=== PATIENT | male | born 1955 | race Caucasian/White ===

== ENCOUNTER 2020-12-15 21:45 | Emergency (ER) | payer BC ==
[~2020-12-15] VITALS: Ht 167.6 cm; Wt 103.6 kg
--- NOTE | 2020-12-15 22:27 | NUR ---
pt moving to bed 5 for cardioversion
[2020-12-15 22:37] LABS: BASOPHILS % (AUTO) 0.5 % (0-1); EOSINOPHILS # (AUTO) 0.3 X10'3 (0-0.9); EOSINOPHILS % (AUTO) 3.3 % (0-6); HEMATOCRIT 35.4 % (42.0-52.0); LYMPHOCYTES # (AUTO) 2.9 X10'3 (1.1-4.8); LYMPHOCYTES % (AUTO) 29.3 % (21-51); MEAN CORPUSCULAR HGB CONC 33.8 g/dL (33.0-36.5); MEAN CORPUSCULAR VOLUME 85.7 FL (78-98); MEAN PLATELET VOLUME 8.4 FL (7.4-10.4); MONOCYTES # (AUTO) 0.8 X10'3 (0-0.9); MONOCYTES % (AUTO) 7.7 % (2-12); NEUTROPHILS # (AUTO) 5.9 X10'3 (1.8-7.7); NEUTROPHILS % (AUTO) 59.2 % (42-75); PLATELET COUNT 267 X10'3 (140-440); RED BLOOD COUNT 4.13 X10'6 (4.70-6.10); RED CELL DISTRIBUTION WIDTH 14.2 % (11.5-14.5); WHITE BLOOD COUNT 9.9 X10'3 (4.5-11.0)
[2020-12-15] MEDS ORDERED: fentaNYL/PF 50MCG/1 ML 2ML syringe IV ONE ×2 (22:40→23:20)
[2020-12-15] MEDS ORDERED: ondansetron/PF 4mg/2ml inj IV ONE ×2 (22:40)
[2020-12-15] MEDS ORDERED: heparin 10,000 units/1 ML INJ IV ONE (22:40)
[2020-12-15] MEDS ORDERED: etomidate 2mg/ml inj. IV ONE (22:40)
--- NOTE | 2020-12-15 22:49 | NUR ---
resp at bedside
[2020-12-15 22:54] LABS: ALANINE AMINOTRANSFERASE 27 U/L (12-78); ALBUMIN 3.6 G/DL (3.4-5.0); ALKALINE PHOSPHATASE 89 IU/L (46-116); ANION GAP 11 (8-16); ASPARTATE AMINO TRANSFERASE 9 U/L (10-37); BILIRUBIN,TOTAL 0.2 MG/DL (0.1-1.0); BLOOD UREA NITROGEN 26 MG/DL (7-18); BUN/CREATININE RATIO 24.1 (5.4-32.0); CALCIUM 8.6 MG/DL (8.5-10.1); CHLORIDE 105 MMOL/L (99-107); CREATININE 1.08 MG/DL (0.60-1.10); GLUCOSE 174 MG/DL (70-104); POTASSIUM 3.3 MMOL/L (3.5-5.1); SODIUM 143 MMOL/L (135-145); TOTAL CARBON DIOXIDE 26.6 MMOL/L (24-32); TOTAL PROTEIN 7.2 G/DL (6.4-8.2); eGFR 69 ML/MIN
--- NOTE | 2020-12-15 22:57 | NUR ---
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 PT GIVEN HEPARIN AND RT AT BEDSIDE. PT SIGNED CONSENT FORM AND VITALS TAKEN. 2L NC O2 ON PT. CURRENT VITALS HR 145 BP 125/52 SPO2 99% ON 2L NC RR 14 PT BEGAN GETTING DIAPHORETIC AND STATES FEELS SWEATY AND CLAMMY. PT STATES ALSO NAUSEA. GAVE ZOFRAN.
[2020-12-15 23:04] LABS: TROPONIN I < 0.04 NG/ML (0.0-0.05)
[2020-12-15] MEDS ORDERED: potassium Cl 20 mEq SR tablet PO STA (23:06)
[2020-12-15] MEDS ORDERED: amiodarone 150mg/dext, iso-os 100 ML IV ONE (23:20)
[2020-12-15] MEDS ORDERED: normal saline 1000ML IV soln IVB ONE (23:20)
--- NOTE | 2020-12-15 23:26 | NUR ---
MODERATE SEDATION FOR CARDIOVERSION DONE WITH PT FOR A TOTAL OF 3 SYNCED SHOCKS. PT IS NOW AWAKE, DENIES ANY COMPLAINTS AT THIS TIME. PT ALERT AND ORIENTED
[2020-12-15] MEDS ORDERED: SOTA80TA PO (23:57)
[2020-12-15] MEDS ORDERED: APIX5TAB3 PO (23:57)
[2020-12-16 00:38] VITALS: BP 114/58
== END 2020-12-16 00:44 | disposition home or self-care (01) ==
LOC: ER 21:49
DX: I48.91 Unspecified atrial fibrillation (principal); R00.2 Palpitations; E87.6 Hypokalemia; R07.89 Other chest pain; R06.02 Shortness of breath; E78.00 Pure hypercholesterolemia, unspecified; I10 Essential (primary) hypertension; E11.9 Type 2 diabetes mellitus without complications; Z88.8 Allergy status to other drugs, medicaments and biological substances; Z79.899 Other long term (current) drug therapy
CPT/HCPCS: 36415; 71045; 80053; 83880; 84443; 84484; 85025; 92960; 93005; 94799; 96365; 96366; 96375; 99291; J1644; J2405; J3010; J7030; 94760; 99152

== ENCOUNTER 2021-09-13 13:59 | Emergency (ER) | payer BC, OTHER, SELFPAY ==
[~2021-09-13] VITALS: Ht 167.6 cm; Wt 94.9 kg
[~2021-09-13 13:59] MED LIST: APIX5TAB3 PO; SOTA80TA PO
[2021-09-13] MEDS ORDERED: aspirin 81mg tab.chew PO ONE (14:25)
[2021-09-13 15:07] LABS: BASOPHILS # (AUTO) 0.1 X10'3 (0-0.2); BASOPHILS % (AUTO) 0.7 % (0-1); EOSINOPHILS # (AUTO) 0.5 X10'3 (0-0.9); EOSINOPHILS % (AUTO) 6.6 % (0-6); HEMATOCRIT 36.2 % (42.0-52.0); LYMPHOCYTES # (AUTO) 1.6 X10'3 (1.1-4.8); LYMPHOCYTES % (AUTO) 19.8 % (21-51); MEAN CORPUSCULAR HEMOGLOBIN 28.4 PG (27.0-31.0); MEAN CORPUSCULAR HGB CONC 33.2 g/dL (33.0-36.5); MEAN CORPUSCULAR VOLUME 85.7 FL (78-98); MEAN PLATELET VOLUME 8.1 FL (7.4-10.4); MONOCYTES # (AUTO) 0.6 X10'3 (0-0.9); MONOCYTES % (AUTO) 7.6 % (2-12); NEUTROPHILS # (AUTO) 5.3 X10'3 (1.8-7.7); NEUTROPHILS % (AUTO) 65.3 % (42-75); PLATELET COUNT 313 X10'3 (140-440); RED BLOOD COUNT 4.22 X10'6 (4.70-6.10); RED CELL DISTRIBUTION WIDTH 14.2 % (11.5-14.5); WHITE BLOOD COUNT 8.1 X10'3 (4.5-11.0)
[2021-09-13 15:20] LABS: ALANINE AMINOTRANSFERASE 34 U/L (12-78); ALBUMIN/GLOBULIN RATIO 1.1 (1.1-1.5); ALKALINE PHOSPHATASE 71 IU/L (46-116); ANION GAP 9 (8-16); ASPARTATE AMINO TRANSFERASE 21 U/L (10-37); BILIRUBIN,TOTAL 0.3 MG/DL (0.1-1.0); BLOOD UREA NITROGEN 18 MG/DL (7-18); BUN/CREATININE RATIO 19.1 (5.4-32.0); CALCIUM 9.2 MG/DL (8.5-10.1); CHLORIDE 103 MMOL/L (99-107); CREATININE 0.94 MG/DL (0.60-1.10); GLUCOSE 96 MG/DL (70-104); POTASSIUM 4.1 MMOL/L (3.5-5.1); SODIUM 140 MMOL/L (135-145); TOTAL CARBON DIOXIDE 27.6 MMOL/L (24-32); TOTAL PROTEIN 7.8 G/DL (6.4-8.2); eGFR 81 ML/MIN
[2021-09-13 16:51] LABS: D-DIMER < 0.19 MG/L FEU (0-0.50)
[2021-09-13] MEDS ORDERED: iohexol 300mg/ml 100ml inj. ONE (17:51)
[2021-09-13] MEDS ORDERED: metroNIDAZOLE-Flagyl 500mg/NS 100 ML IV STA (19:02)
[2021-09-13] MEDS ORDERED: dexamethasone sod phosphate 10mg/ml inj IV STA (19:02)
[2021-09-13] MEDS ORDERED: CefTRIAXone 2gm/NS 100ml IVPB 100 ML IV ONE (19:05)
[2021-09-13] MEDS ORDERED: HYDR12.55 PO (20:23)
[2021-09-13] MEDS ORDERED: GLIP5TAB13 PO (20:23)
[2021-09-13] MEDS ORDERED: ATRIN IH (20:23)
[2021-09-13] MEDS ORDERED: LOSA25TA96 PO (20:23)
[2021-09-13] MEDS ORDERED: CYCL-394 PO (20:23)
[2021-09-13] MEDS ORDERED: GEMF600T90 CORPAK (20:23)
[2021-09-13] MEDS ORDERED: QUET100T34 PO (20:23)
[2021-09-13] MEDS ORDERED: SERT25TA PO (20:23)
[2021-09-13] MEDS ORDERED: FLUT1BLS13 (20:23)
[2021-09-13] MEDS ORDERED: ATOR20TA PO (20:23)
[2021-09-13] MEDS ORDERED: EXEN2AUT (20:23)
[2021-09-13] MEDS ORDERED: AMLO10TA PO (20:23)
[2021-09-13] MEDS ORDERED: ALB0.5UD IH (20:23)
[2021-09-13] MEDS: doxycycline inj 100 MG in normal saline 100ml IV soln 100 ML IV SCH (21:31)
[2021-09-13] MEDS ORDERED: CHOL100025 PO (23:34)
[2021-09-13] MEDS ORDERED: ipratropium/albuterol 3ml nebule NEB ONE (23:35)
[2021-09-14] MEDS: doxycycline inj 100 MG in normal saline 100ml IV soln 100 ML IV SCH (08:11)
[2021-09-14] MEDS ORDERED: LIDOCAINE 4% (40MG/ML) topical solution 50ml **BRONCH ONLY ONE (08:44)
[2021-09-14] MEDS ORDERED: lidocaine 2% viscous 15 ML cup ***bronch room only MM ONE (08:44)
[2021-09-14] MEDS ORDERED: fentaNYL/PF 50MCG/1 ML 2ML syringe IV ONE (08:45)
[2021-09-14] MEDS ORDERED: MIDAZolam 5mg/ml 2ml vial IV ONE (08:45)
[2021-09-14] MEDS ORDERED: MIDAZolam 1mg/ml 10ml vial IV PRN (08:50)
[2021-09-14] MEDS ORDERED: fentaNYL/PF 50MCG/1 ML 2ML syringe IV PRN (08:50)
[2021-09-14 10:18] VITALS: BP 143/72
== END 2021-09-14 10:20 | disposition home or self-care (01) ==
LOC: ER 14:00
DX: R07.89 Other chest pain (principal); Z20.822 Contact with and (suspected) exposure to COVID-19; R05.9 Cough, unspecified; I48.91 Unspecified atrial fibrillation; E78.00 Pure hypercholesterolemia, unspecified; I10 Essential (primary) hypertension; E11.9 Type 2 diabetes mellitus without complications; Z88.8 Allergy status to other drugs, medicaments and biological substances; Z79.899 Other long term (current) drug therapy; Z79.01 Long term (current) use of anticoagulants
CPT/HCPCS: 31645; 36415; 71045; 71260; 80053; 83735; 83880; 84484; 85025; 85379; 87070; 87635; 93005; 94640; 94799; 96365; 96366; 96367; 96368; 96375; 99285; C9803; J0696; J2250; J3010; J3490; Q9967; 94760; 96374